=== PATIENT | male | born 1960 | race Caucasian/White ===

== ENCOUNTER 2020-11-12 10:17 | Outpatient (CLI) | payer MEDICAID, SELFPAY ==
--- NOTE | 2020-11-12 11:19 | CT_ITS ---
WS: [id number] CT CERVICAL SPINE TECHNIQUE: Noncontrast CT of the cervical spine with coronal and sagittal reformatted images. CLINICAL INFORMATION: NECK PAIN, NEUROPATHIC PAIN, PARATHESIS UPPER EXTREMITY COMPARISON: None. DLP: 2278.[address] scans at [facility] use at least one of these dose optimization techniques: automat ed exposure control; mA and/or kV adjustment per patient size (includes targeted exams where dose is matched to clinical indication); or iterative reconstruction. FINDINGS: Moderate spondylitic changes cervical spine. Disc osteophyte complexes worse at C6-7. Calcification a long the nuchal ligament. Normal C1-2 articulation. C2-C3: No significant disc bulging. Mild to moderate facet arthropathy worse in the left. Mild left f oraminal narrowing. Spinal canal is patent. C3-C4: Advanced left facet arthropathy. Severe left bony foraminal narrowing. Right foramen and spina l canal are patent. C4-C5: Advanced left facet arthropathy. Spinal canal and foramen are patent. C5-C6: Disc osteophytic ridging. Advanced right facet arthropathy.Severe left and mild right bony for aminal narrowing. Mild central canal stenosis. C6-C7: Disc osteophyte complex with endplate ridging. Mild central canal stenosis. Severe left and mo derate right bony foraminal narrowing. Mild facet arthropathy. C7-T1: No significant disc bulging. Spinal canal and foramen are patent. Visualized posterior nasopharynx: Normal. Prevertebral soft tissues: Normal. CT/CT cervical spin wo con* [id number] IMPRESSION: 1. Mild cervical curve. Straightening of the normal cervical lordosis. Mild sp ondylitic changes. 2. Disc osteophyte complex worse at C6-7 with mild central canal stenosis. Sev ere left bony foraminal narrowing at this level. 3. Severe left C3-C4 bony foraminal narrowing with advanced left facet arthrop athy. 4. Severe left C5-C6 bony foraminal narrowing. 5. Asymmetric advanced facet arthropathy at left C3-4, left C4-5, right C5-C6.
== END 2020-11-12 10:18 | disposition home or self-care (01) ==
PROVIDERS: PCP Nurse Practitioner Family; Visit Provider Nurse Practitioner Family
DX: M79.2 Neuralgia and neuritis, unspecified (principal); R20.2 Paresthesia of skin; M19.90 Unspecified osteoarthritis, unspecified site; M47.812 Spondylosis without myelopathy or radiculopathy, cervical region; M25.78 Osteophyte, vertebrae
CPT/HCPCS: 72125

== ENCOUNTER → 2021-01-02 13:49 | Outpatient (BNVA) | payer MEDICAID, SELFPAY | PROVIDERS: PCP Nurse Practitioner Family; Referring Provider Nurse Practitioner Family; Visit Provider Orthopaedic Surgery | DX: M54.2 Cervicalgia (principal) | CPT/HCPCS: 72050 ==

== ENCOUNTER 2021-02-21 10:01 | Outpatient (CLI) | payer MEDICAID, SELFPAY ==
--- NOTE | 2021-02-21 10:07 | MR_ITS ---
WS: [id number] MRI CERVICAL SPINE NONCONTRAST HISTORY: SPONDYLOSIS COMPARISON: 11/12/2020 Technique: Multiplanar, multisequence noncontrast imaging of the cervical spine. Less than 2 mm anterolisthesis of C5. No marrow edema or fracture. Signal within the cord is normal. Disc space narrowing and desiccation with significant at C5-6 and C 6-7. Craniocervical junction, C1 and C2 relationship, odontoid process and soft tissues are normal. C2-C3: Normal. C3-C4: Mild osteophytic ridging. Small LEFT foraminal osteophyte causing a mild LEFT foraminal stenos is and moderate facet joint arthritis on the LEFT. C4-C5: Mild annular disc bulging and facet arthritis. No significant stenosis. C5-C6: Mild annular disc bulging and osteophytic ridging. Bilateral mild facet joint arthritis. Osteo phyte and disc disease encroach into the foramen causing mild RIGHT and moderate LEFT foraminal steno sis. C6-C7: Moderate annular disc bulging. Bilateral paracentral disc osteophyte protrusions. Disc osteoph yte complexes extend into the foramen bilaterally. Mild central stenosis with moderate to severe bila teral foraminal stenosis. C7-T1: Normal. Paraspinal soft tissue are normal. MR/MR cervical spin wo con* [id number] IMPRESSION: 1. No fracture. 2. Moderate to severe bilateral foraminal stenosis and mild central stenosis a t C6-7 due to a combination of disc and osteophyte disease. 3. Moderate LEFT and mild RIGHT foraminal stenosis at C5-6. 4. Mild LEFT foraminal stenosis at C3-4.
== END 2021-02-21 10:02 | disposition home or self-care (01) ==
PROVIDERS: PCP Nurse Practitioner Family; Visit Provider Orthopaedic Surgery
DX: M47.12 Other spondylosis with myelopathy, cervical region (principal); M48.02 Spinal stenosis, cervical region
CPT/HCPCS: 72141

== ENCOUNTER → 2021-03-04 08:33 | Outpatient (BNVA) | payer MEDICAID, SELFPAY | PROVIDERS: PCP Nurse Practitioner Family; Visit Provider Anesthesiology Pain Medicine | DX: M54.2 Cervicalgia (principal); M54.9 Dorsalgia, unspecified; M79.622 Pain in left upper arm; Z79.891 Long term (current) use of opiate analgesic | CPT/HCPCS: 99205 ==

== ENCOUNTER → 2021-03-18 12:35 | Outpatient (BNVA) | payer MEDICAID, SELFPAY | PROVIDERS: PCP Nurse Practitioner Family; Visit Provider Anesthesiology Pain Medicine | DX: G89.29 Other chronic pain (principal); M54.2 Cervicalgia; Z79.891 Long term (current) use of opiate analgesic | CPT/HCPCS: 62321; J1100 ==

== ENCOUNTER → 2021-04-01 13:56 | Outpatient (BNVA) | payer MEDICAID, SELFPAY | PROVIDERS: PCP Nurse Practitioner Family; Visit Provider Anesthesiology Pain Medicine | DX: G89.29 Other chronic pain (principal); M54.2 Cervicalgia; Z79.891 Long term (current) use of opiate analgesic | CPT/HCPCS: 62321; J1100 ==

== ENCOUNTER → 2021-04-14 09:34 | Outpatient (BNVA) | payer MEDICAID, SELFPAY | PROVIDERS: PCP Nurse Practitioner Family; Visit Provider Anesthesiology Pain Medicine | DX: M54.12 Radiculopathy, cervical region (principal); M47.812 Spondylosis without myelopathy or radiculopathy, cervical region | CPT/HCPCS: 99214 ==

== ENCOUNTER → 2021-04-23 08:30 | Outpatient (BNVA) | payer MEDICAID, SELFPAY | PROVIDERS: PCP Nurse Practitioner Family; Visit Provider Specialist | DX: G56.02 Carpal tunnel syndrome, left upper limb (principal) | CPT/HCPCS: 95886; 95908 ==

== ENCOUNTER → 2021-05-05 15:10 | Outpatient (BNVA) | payer MEDICAID, SELFPAY | PROVIDERS: PCP Nurse Practitioner Family; Visit Provider Specialist | DX: G56.02 Carpal tunnel syndrome, left upper limb (principal) | CPT/HCPCS: 73110 ==

== ENCOUNTER → 2021-05-12 11:06 | Outpatient (BNVA) | payer MEDICAID, SELFPAY | PROVIDERS: PCP Nurse Practitioner Family; Visit Provider Specialist | DX: G56.02 Carpal tunnel syndrome, left upper limb (principal); Z01.812 Encounter for preprocedural laboratory examination; Z20.822 Contact with and (suspected) exposure to COVID-19 | CPT/HCPCS: 87635 ==

== ENCOUNTER 2021-05-16 06:30 | Day surgery (SDC) | payer MEDICAID, SELFPAY ==
[2021-05-15 14:47] VITALS: BMI 33.0
[2021-05-16] MEDS: CELEcoxib 200 mg Capsule 400 MG PO (07:17)
--- NOTE | 2021-05-16 07:28 | ANES.PREANE2 ---
Pre-Anesthetic Assessment Pre-Anesthetic Assessment: Height/Weight: Height 1.75 m Weight 101.605 kg Preop Diagnosis: Left carpal tunnel syndrome Proposed Procedure: Operation Date: 05/16/21 08:00 Proposed Procedures p Carpal Tunnel Release [id number] G56.01(Left) - Shazia Wang MD Was Beta Evelyn taken within 24 hours: Yes Was Clonidine taken within 24 hours: N/A Last intake: Intake Last Liquid Date 05/15/21 Last Liquid Time 22:00 Last Solid Date 05/15/21 Last Solid Time 21:00 Last Intake: 11:01 Social: Social History: No alcohol and No tobacco Airway: Submandibular: Other Cervical ROM: Other MP: 3 Dentition: Chipped and Other (Many missing teeth; appear intact what remains) History/ROS: No significant complaints Pulmonary: Pulmonary: None reported CV/HEM: CV/HEM: None reported : : None reported Hepatic: Hepatic: None reported GI: GI: None reported Metabolic: Metabolic: Morbid obesity Musc/skel: Comments: Cervical radiculopathy Neuropsych: Neuropsych: Depression Anesthetic Plan: ASA status: 3 Anesthesia: Anesthesia Evaluation, Eval. for regional block and Regional (specify below) Other: [place] Block Risk of > 500 ml blood loss (7ml/kg in children): No PFSH Anesthesia PFSH: Family History Denies family history of Anesthesia complication Bleeding disorder Social History Smoking and tobacco status: never smoked Alcohol intake: current Alcohol intake frequency: 0-2 Drinks per Day Alcohol type: wine Lives independently: Yes History of recent travel: No Data Anesthesia Cardiac Studies: No Data to Display
[2021-05-16 07:31] VITALS: BP 150/85; PULSE 57; RESP 18; TEMP 36.5; O2SAT 99
[2021-05-16] MEDS: acetaminophen 1,000 MG/100 ML PIGGYBACK 400 MG IV (07:45)
[2021-05-16] MEDS: sodium chloride 0.9% 1,000 ML 30 ML IV (07:45)
--- NOTE | 2021-05-16 08:11 | P.HPUD_ITS ---
Surgery/Procedure H&P Update DATE OF PROCEDURE: May 16, 2021 DATE H&P PERFORMED: 05/05/21 H&P UPDATE INFORMATION: I have reviewed H&P completed within last 30 days, I have examined patient prior to procedure, No changes to prior documentation and H&P is in [facility] EMR on date indicated PREOP DIAGNOSIS: Left carpal tunnel syndrome PLANNED PROCEDURE: Operation Date: 05/16/21 08:00 Proposed Procedures p Left Carpal Tunnel Release [id number] G56.01(Left) - Shazia Wang MD Related Problem List Diagnoses (1) Left carpal tunnel syndrome:
[2021-05-16 09:21] VITALS: BP 165/105; PULSE 65; RESP 20; TEMP 36.2; O2SAT 98
[2021-05-16 09:25] VITALS: BP 177/103; PULSE 64; RESP 18; O2SAT 98
--- NOTE | 2021-05-16 09:29 | PM.OP ---
Operative Report Date of procedure: May 16, 2021 Pre-op Diagnosis: Left carpal tunnel syndrome Post-op diagnosis: same Post-op Findings: Severe compression across the median nerve Procedure Done: Left carpal tunnel release Specimens removed/disposition: None Pathology: none sent Surgeon: Shazia Wang Anesthesia: MAC (With Emily block, ASA 3) Estimated blood loss (mL): 2 Tourniquet time (min): 41 Tourniquet time: At 250 mmHg IV fluids (mL): 300 Urine output (mL): 0 Urine output: No Cervantes Complications: None Findings: Severe compression across the median nerve with very tight carpal canal Condition: stable Disposition: PACU (Then to same-day surgery for discharge to home ) Brief History: This 60-year-old gentleman was in his usual state when he presented complaining of severe numbness and tingling in left hand. Findings were consistent with carpal tunnel syndrome. After discussion, the patient wished to proceed with carpal tunnel release. Risks and complications were discussed, consents were signed, and questions were answered. Procedure: The patient was brought to the operating theater. The patient had a Butters block with MAC. The tourniquet was elevated to 250 mmHg for a total tourniquet time of 41 minutes. The patient was also given Ancef 2 g preoperatively. The arm was then prepped and draped with DuraPrep in usual fashion with the arm draped free. A surgical pause was performed. At the time, the surgical pause, we confirmed the site and side of surgery. We also confirmed the patient's identity, appropriate and timely administration of preoperative antibiotics and preoperative surgical markings. An incision was then made along the thenar crease. The incision crossed the wrist joint in a curvilinear fashion. Dissection continued through skin and soft tissues using a scalpel. The palmaris longus was identified along with the transverse carpal ligament. Each of these was released carefully to avoid injury to the median nerve. We were able to dissect gently into the carpal canal which was noted to be quite tight with significant compression across the median nerve. The nerve was visualized and was an hourglass shape. There was a very prominent vein over the median nerve as well. Care was taken to release the carpal canal proximally and distally, and the canal was subsequently palpated to assure there was no bony encroachment upon the canal. There was a quite thickened fibrous tissue within the canal, and this was opened longitudinally as well. The canal was then palpated distally and proximally to assure that my small finger was passed easily without impingement. Finding this to be so, attention was directed to closure. The wound was irrigated with ropivacaine plain. It was then closed with 3-0 nylon in an interrupted mattress fashion. Sterile dressing was then placed consisting of Xeroform gauze, fluffed fluffs, sterile soft roll, a volar splint, and an [place] wrap. The tourniquet was released after 41 minutes. There were no complications. There were no specimens. The procedure was well tolerated. Plan is the patient will be discharged home. Associated Problem List Diagnoses (1) Left carpal tunnel syndrome:
[2021-05-16 09:30] VITALS: BP 178/98; PULSE 60; PULSE 61; RESP 17; TEMP 36.6; O2SAT 98
[2021-05-16 09:43] VITALS: BP 156/82; PULSE 60; RESP 18; TEMP 36.6; O2SAT 99
--- NOTE | 2021-05-16 15:58 | ANE.PACU2 ---
Inpatient post-anesthesia follow up: Airway intact: Yes Vital signs: Temperature 97.8 F Pulse Rate 60 Respiratory Rate 18 Blood Pressure 156/82 Pulse Oximetry 99 Oxygen Delivery Me thod Room Air Oxygen Flow Rate Fraction of Inspir ed Oxygen Hydration adequate: Yes Nausea and vomiting: No Pain level: 2 Mental status: Baseline
== END 2021-05-16 10:08 | disposition home or self-care (01) ==
PROVIDERS: PCP Nurse Practitioner Family; Visit Provider Specialist
PROC: (CPT 64721; principal; 2021-05-16 08:00)
DX: G56.02 Carpal tunnel syndrome, left upper limb (principal); E66.01 Morbid (severe) obesity due to excess calories; Z68.33 Body mass index [BMI] 33.0-33.9, adult
CPT/HCPCS: 64721; 96365; 96374; J0690; J2250; J2704; J3490; J7030

== ENCOUNTER 2022-06-12 13:45 | Outpatient (CLI) | payer MEDICAID, SELFPAY ==
--- NOTE | 2022-06-12 14:09 | XR_ITS ---
WS: [id number] Exam: XR foot LT min 3V* [id number] Date/Time of Exam: 06/12/2022 2:09 PM Reason For Exam: BILATERAL FOOT PAIN No acute fracture or dislocation. Moderate DJD of the first MP joint with [id number] articulation. No soft tissue foreign bodies are seen. XR/XR foot LT min 3V* [id number] IMPRESSION: 1. No fracture or dislocation. 2. Moderately advanced DJD at the first MP joint.
--- NOTE | 2022-06-12 14:09 | XR_ITS ---
WS: [id number] Exam: XR foot RT min 3V* [id number] Date/Time of Exam: 06/12/2022 2:41 PM Reason For Exam: BILATERAL FOOT PAIN No acute fracture or dislocation. Old healed fracture of the calcaneus with plate and screw fixation along the lateral wall. Moderately advanced DJD at the first MP joint with [id number]. There are 2 small wire fragments seen in the region of the third toe most likely soft tissue foreign bodies. Dege nerative changes in the midfoot joints. Thickening and calcification in the Achilles tendon which jewels ht reflect chronic tendinitis. XR/XR foot RT min 3V* [id number] IMPRESSION: 1. Old fracture deformity of the calcaneus with the hardware. 2. Degenerative facet changes as detailed above. 3. 2 small wire fragments identified in the region of the third and fourth toes most likely representing soft tissue foreign bodies. Additional minor nonacute findings.
--- NOTE | 2022-06-12 14:09 | XR_ITS ---
WS: [id number] Exam: XR knee LT 3V* [id number] Date/Time of Exam: 06/12/2022 2:09 PM Reason For Exam: BILATERAL KNEE PAIN Comparison 08/24/2018. Moderate tricompartmental degenerative change most severe involving the medial joint compartment. No fracture or dislocation. Calcification of the medial and lateral menisci. No joint effusion. XR/XR knee LT 3V* [id number] IMPRESSION: 1. Degenerative changes most severe involving the medial joint compartment. 2. Chondrocalcinosis. 3. No acute fracture.
--- NOTE | 2022-06-12 14:09 | XR_ITS ---
WS: [id number] Exam: XR knee RT 3V* [id number] Date/Time of Exam: 06/12/2022 2:09 PM Reason For Exam: BILATERAL KNEE PAIN No acute fracture or dislocation. Severe tricompartmental degenerative change. No joint effusion. Cho ndrocalcinosis and probable multiple loose joint bodies. Old healed fracture of the upper fibula. XR/XR knee RT 3V* [id number] IMPRESSION: 1. Advanced tricompartmental DJD. 2. Chondrocalcinosis with the probable multiple loose joint bodies. No acute fr acture.
== END 2022-06-12 13:46 | disposition home or self-care (01) ==
PROVIDERS: PCP Nurse Practitioner Family; Visit Provider Nurse Practitioner Family
DX: M79.671 Pain in right foot; M79.672 Pain in left foot; M11.261 Other chondrocalcinosis, right knee; M11.262 Other chondrocalcinosis, left knee; M19.071 Primary osteoarthritis, right ankle and foot
CPT/HCPCS: 73562; 73630

== ENCOUNTER → 2022-07-06 13:58 | Outpatient (BNVA) | payer MEDICAID, SELFPAY | PROVIDERS: PCP Nurse Practitioner Family; Visit Provider Specialist | DX: M17.2 Bilateral post-traumatic osteoarthritis of knee (principal); M11.261 Other chondrocalcinosis, right knee; M11.262 Other chondrocalcinosis, left knee | CPT/HCPCS: 20610; 73560; 73565; 99204; J1100; J2795; J3301 ==

== ENCOUNTER → 2022-08-24 13:40 | Outpatient (BNVA) | payer MEDICAID, SELFPAY | PROVIDERS: PCP Nurse Practitioner Family; Visit Provider Specialist | DX: M17.2 Bilateral post-traumatic osteoarthritis of knee (principal) | CPT/HCPCS: 99214 ==

== ENCOUNTER 2022-10-29 07:19 | Outpatient (CLI) | payer MEDICAID, SELFPAY ==
--- NOTE | 2022-10-29 07:28 | MR_ITS ---
WS: [id number] MRI LEFT KNEE NONCONTRAST TECHNIQUE: Axial PD, coronal PD fat sat, coronal PD, sagittal PD, and sagittal PD fat-sat images obta ined. CLINICAL INFORMATION: knee pain COMPARISON: None. FINDINGS: Moderate to advanced joint space narrowing medial joint compartment. Slight hypertrophic changes heather g the joint line. Distal quadriceps and patella tendons are intact. Hypertrophic patella. Advanced ch ondromalacia patella with chondral fissuring. Small suprapatellar effusion. Prepatellar and infrapate llar soft tissue edema. Advanced degenerative narrowing at the patellofemoral articulation. Lobulated popliteal cyst measuring 3.1 x 3.3 x 2.6 cm. Chronic appearing tear of the ACL. No normal ACL fibers visualized. Normal PCL. Grade IV chondromalacia involving the medial and lateral joint compartments with subchondral edema worse in the medial joint compartment. Subchondral cystic change along the intercondylar notch and tibial spines. Small amount of subchondral cystic change along the medial femoral condyle. Fluid and edema deep to t he medial collateral ligament. Medial and lateral collateral ligaments appear intact. Biceps femoris appears intact. Tear of the posterior horn medial meniscus with blunting. Chronic thinning of the med ial meniscus. Lateral meniscus is better preserved. Hypertrophic changes along the joint line with a few intra-articular loose bodies. MR/MR knee LT wo con* [id number] IMPRESSION: 1. Chronic appearing tear of the ACL. No normal fibers visualized. 2. PCL is intact. 3. Advanced tricompartmental arthritis worse medial joint compartment and bradley llofemoral articulation. Hypertrophic changes along the joint line with a few i ntra-articular loose bodies. 4. Hypertrophic patella with grade III chondromalacia. 5. Grade IV chondromalacia involving the medial and lateral joint compartments with subchondral edema. 6. Small joint effusion. 7. Tear of the posterior horn medial meniscus with chronic thinning of the med ial meniscus. Lateral meniscus is better preserved. 8. Lobulated popliteal cyst measuring 3.1 x 2.6 x 3.3 cm Outbridge grading:
== END 2022-10-29 07:20 | disposition home or self-care (01) ==
LOC: RAD 07:23
PROVIDERS: PCP Nurse Practitioner Family; Visit Provider Specialist
DX: S83.512A Sprain of anterior cruciate ligament of left knee, initial encounter (principal); X58.XXXA Exposure to other specified factors, initial encounter; M71.22 Synovial cyst of popliteal space [Baker], left knee; S83.242A Other tear of medial meniscus, current injury, left knee, initial encounter; M25.462 Effusion, left knee; M22.42 Chondromalacia patellae, left knee; M13.862 Other specified arthritis, left knee
CPT/HCPCS: 73721

== ENCOUNTER → 2023-04-13 13:50 | Outpatient (BNVA) | payer MEDICAID, SELFPAY | PROVIDERS: PCP Nurse Practitioner Family; Visit Provider Specialist | DX: M17.2 Bilateral post-traumatic osteoarthritis of knee | CPT/HCPCS: 20610; 73560; 73565; 99214; J1100; J2795; J3301 ==

== ENCOUNTER → 2023-05-24 13:39 | Outpatient (BNVA) | payer MEDICAID, SELFPAY | PROVIDERS: PCP Nurse Practitioner Family; Visit Provider Specialist | DX: M17.12 Unilateral primary osteoarthritis, left knee | CPT/HCPCS: 99213 ==

== ENCOUNTER → 2024-06-19 09:42 | Outpatient (BNVA) | payer MEDICARE, MEDICAID, SELFPAY | PROVIDERS: PCP Nurse Practitioner Family; Referring Provider Nurse Practitioner Family; Visit Provider Surgery | DX: Z12.11 Encounter for screening for malignant neoplasm of colon (principal) | CPT/HCPCS: 99024; 99204 ==

== ENCOUNTER 2024-07-12 05:50 | Day surgery (SDC) | payer MEDICARE, MEDICAID, SELFPAY ==
[2024-07-12 06:07] VITALS: BP 152/86; PULSE 67; RESP 18; TEMP 36.8; O2SAT 95; BMI 32.9
[2024-07-12] MEDS: sodium chloride 0.9% 1,000 ML 30 ML IV (06:14)
--- NOTE | 2024-07-12 06:51 | ANES.PREANE2 ---
Pre-Anesthetic Assessment Height/Weight: Height 5 ft 9 in Weight 223 lb Temp Pulse Resp BP Pulse Ox O2 Del Method 98.2 F 67 18 152/86 95 Room Air 07/12/24 06:07 07/12/24 06:07 07/12/24 06:07 07/12/24 06:07 07/12/24 06:07 07/12/24 06:07 Preop Diagnosis: Screening colonoscopy Operation Date: 07/12/24 07:00 Proposed Procedures p Colonoscopy [id number], G0121, Z12.11(Not Applicable) - Clif Briggs, DO Was Beta Evelyn taken within 24 hours: N/A Was Clonidine taken within 24 hours: N/A Last intake: Intake Last Liquid Date 07/11/24 Last Liquid Time 23:59 Last Solid Date 07/10/24 Last Solid Time 23:59 Social No alcohol and No tobacco Exam alert, oriented x 3, clear to auscultation bilaterally and regular rate & rhythm Airway Submandibular: within normal limits Cervical ROM: Other (Cervical issues, limited extension) Mallampati: Class II Dentition: full Comments: Comments: Multiple missing teeth, denies any loose Anesthetic Plan ASA status: 2 Other: No prior issues with anesthesia Completed bowel prep History of neck issues with limited extension Takes tramadol for chronic pain Hypertension on metoprolol, BB PE preop 152/86 Plan for MAC anesthetic Medications/Allergies Home Medications Medication Instructions Recorded Confirmed Last Taken Type citalopram 40 mg tablet (Celexa) 20 mg PO DAILY 01/02/21 07/10/24 07/11/24 History clonazepam 1 mg tablet 0.5 - 1 mg PO TID PRN Anxiety 03/04/21 07/10/24 07/12/24 04:30 History gemfibrozil 600 mg tablet 600 mg PO BID 03/04/21 07/10/24 07/11/24 History metoprolol succinate 200 mg 200 mg PO DAILY 03/04/21 07/10/24 07/12/24 04:30 History tablet,extended release 24 hr tramadol 50 mg tablet 50 mg PO Q6H PRN Pain 03/04/21 07/10/24 07/11/24 History tizanidine 4 mg capsule 4 mg PO TID PRN Spasms 04/14/21 07/10/24 07/11/24 History tamsulosin 0.4 mg capsule 0.4 mg PO ONCE 06/19/24 07/10/24 07/11/24 History triamterene 37.5 1 tab PO ONCE 06/19/24 07/10/24 07/11/24 History mg-hydrochlorothiazide 25 mg tablet Allergies Allergy/AdvReac Type Severity Reaction Status Date / Time No Known Allergies Allergy Verified 06/19/24 09:45 Current Medications Generic Name Dose Route Start Last Admin Trade Name Freq PRN Reason Stop Dose Admin Sodium Chloride 1,000 mls @ 30 mls/hr 07/12/24 06:00 07/12/24 06:14 Sodium Chloride 0.9% IV 07/13/24 05:59 30 mls/hr .Q24H JUAN Administration PFSH Anesthesia Family History Denies family history of Anesthesia complication Bleeding disorder Social History Smoking and tobacco/nicotine status: never used tobacco/nicotine Alcohol intake: current Alcohol intake frequency: 0-2 Drinks per Day Alcohol type: wine Substance/Drug Use: never Lives independently: Yes Data Anesthesia Cardiac Studies: No Data to Display
--- NOTE | 2024-07-12 06:58 | W.PM.OPSUD ---
Surgery/Procedure H&P Update DATE OF PROCEDURE: July 12, 2024 DATE H&P PERFORMED: 06/19/24 H&P UPDATE INFORMATION: I have reviewed H&P completed within last 30 days, I have examined patient prior to procedure and No changes to prior documentation PREOP DIAGNOSIS: Screening colonoscopy PLANNED PROCEDURE: Operation Date: 07/12/24 07:00 Proposed Procedures p Colonoscopy 14559, G0121, Z12.11(Not Applicable) - Clif Briggs DO
[2024-07-12 07:29] VITALS: BP 119/81; PULSE 63; RESP 12; TEMP 36.3; O2SAT 99
[2024-07-12 07:36] VITALS: BP 139/85; PULSE 64; RESP 18; O2SAT 95
--- NOTE | 2024-07-12 07:40 | PC.NURSE ---
Patient arrived and left via ready transport.
[2024-07-12 07:44] VITALS: BP 143/89; PULSE 56; RESP 18; O2SAT 94
--- NOTE | 2024-07-12 08:08 | ANE.PACU2 ---
Inpatient post-anesthesia follow up: Airway intact: Yes Vital signs: Temperature 97.4 F Pulse Rate 56 Respiratory Rate 18 Blood Pressure 143/89 Pulse Oximetry 94 Oxygen Delivery Me thod Room Air Oxygen Flow Rate 3 Fraction of Inspir ed Oxygen Hydration adequate: Yes Nausea and vomiting: No Pain level: 1 Mental status: Baseline
== END 2024-07-12 08:08 | disposition home or self-care (01) ==
PROVIDERS: PCP Nurse Practitioner Family; Visit Provider Surgery
PROC: 0DJD8ZZ Inspection of Lower Intestinal Tract, Via Natural or Artificial Opening Endoscopic (ICD-10-PCS; CPT 45378; principal; 2024-07-12 07:00)
DX: Z12.11 Encounter for screening for malignant neoplasm of colon (principal); D12.3 Benign neoplasm of transverse colon; K57.30 Diverticulosis of large intestine without perforation or abscess without bleeding; G89.29 Other chronic pain; Z79.891 Long term (current) use of opiate analgesic; I10 Essential (primary) hypertension
CPT/HCPCS: 45385; 88305; J2704; J7030

== ENCOUNTER → 2024-07-27 11:30 | Outpatient (BNVA) | payer MEDICARE, MEDICAID, SELFPAY | PROVIDERS: PCP Nurse Practitioner Family; Visit Provider Surgery | DX: Z09 Encounter for follow-up examination after completed treatment for conditions other than malignant neoplasm (principal); K42.9 Umbilical hernia without obstruction or gangrene; D37.4 Neoplasm of uncertain behavior of colon | CPT/HCPCS: 99214 ==